=== PATIENT | male | born 1960 | race Caucasian/White ===

== ENCOUNTER 2019-01-21 16:45 | Inpatient (IN) | payer BC ==
[~2019-01-21] VITALS: Ht 182.9 cm; Wt 121.2 kg
[2019-01-21] MEDS ORDERED: NITROGLYCERIN 0.4 MG BOTTLE (25 TABS) SL PRN (17:30)
[2019-01-21 17:36] LABS: BASOPHILS # (AUTO) 0.02 x10^3/uL (0-0.1); BASOPHILS % (AUTO) 0 % (0-1); EOSINOPHILS # (AUTO) 0.11 x10^3/uL (0-0.4); EOSINOPHILS % (AUTO) 1 % (1-7); LYMPHOCYTES # (AUTO) 1.69 x10^3/uL (1-3.4); LYMPHOCYTES % (AUTO) 21 % (22-44); MD NO; MEAN CORPUSCULAR HGB CONC 34.1 g/dL (33.2-36.2); MEAN CORPUSCULAR VOLUME 93.8 fL (81-97); MEAN PLATELET VOLUME 7.9 fL (7.4-10.4); MONOCYTES % (AUTO) 10 % (2-9); NEUTROPHILS # (AUTO) 5.59 x10^3/uL (1.8-6.8); NEUTROPHILS % (AUTO) 68 % (42-75); PLATELET COUNT 189 x10^3/uL (130-400); RED BLOOD COUNT 5.01 x10^6/uL (4.38-5.82); RED CELL DISTRIBUTION WIDTH 12.7 % (9.4-14.8)
[2019-01-21 17:47] LABS: ALBUMIN 3.7 g/dL (3.4-5.0); ANION GAP 7 mmol/L (5-15); CALCIUM 8.6 mg/dL (8.5-10.1); CHLORIDE 105 mmol/L (98-107)
[2019-01-21] MEDS ORDERED: NITROGLYCERIN SINGLE TAB 0.4 MG SL ONE (17:47)
[2019-01-21] MEDS ORDERED: ASPIRIN 81 MG TABLET CHEW ONE (17:47)
[2019-01-21 17:50] LABS: INTERNATIONAL NORMALIZED RATIO 0.99 (0.93-1.1); PROTHROMBIN TIME 10.4 Seconds (9.6-11.5)
[2019-01-21] MEDS ORDERED: ASPIRIN 81 MG TABLET CHEW PO ONE (18:00)
[2019-01-21] MEDS ORDERED: HEPARIN 5,000 UNITS/ML, 1ML ONE (18:21)
[2019-01-21] MEDS ORDERED: HEPARIN 25,000 UNITS/500ML PMX 500 ML ONE (18:22)
[2019-01-21] MEDS ORDERED: NITROGLYCERIN OINT 2%, 1GM TP ONE (18:22)
[2019-01-21] MEDS ORDERED: HEPARIN 5,000 UNITS/ML, 1ML IV ONE (18:30)
[2019-01-21] MEDS ORDERED: HEPARIN 5,000 UNITS/ML, 1ML IV PRN (18:30)
[2019-01-21] MEDS ORDERED: HEPARIN 25,000 UNITS/500ML PMX 500 ML IV PRN (18:30)
[2019-01-21] MEDS ORDERED: SODIUM CHLORIDE FLUSH 10ML SYR IVF ONE (18:30)
[2019-01-21] MEDS ORDERED: MIDAZOLAM 1 MG/ML, 5ML ONE (18:45)
[2019-01-21] MEDS ORDERED: FENTANYL PF 100 MCG/2ML ONE (18:45)
[2019-01-21] MEDS ORDERED: HEPARIN 1,000 UNITS/ML, 10ML ONE (18:46)
[2019-01-21] MEDS ORDERED: TICAGRELOR 90 MG TABLET ONE (18:46)
[2019-01-21] MEDS ORDERED: BIVALIRUDIN 250 MG ONE ×3 (18:46→19:25)
[2019-01-21] MEDS ORDERED: LIDOCAINE 2%, 20ML ONE (18:46)
[2019-01-21] MEDS ORDERED: SODIUM CHLORIDE FLUSH 10ML SYR IVF PRN (19:00)
[2019-01-21] MEDS ORDERED: DIPHENHYDRAMINE 50 MG/ML, 1ML ONE (19:02)
--- NOTE | 2019-01-21 19:03 | NUR ---
TO SPINNING FR[employer] 1852. UNDECIDED ON NSTEMI OR STEMI
[2019-01-21] MEDS ORDERED: ONDANSETRON 2MG/ML, 2ML IVPush PRN (19:30)
[2019-01-21] MEDS ORDERED: POLYETHYLENE GLYCOL 17 GM PACKET PO PRN (19:30)
[2019-01-21] MEDS ORDERED: BISACODYL 10 MG SUPP PR PRN (19:30)
[2019-01-21] MEDS ORDERED: BIVALIRUDIN 250 MG in SODIUM CHLORIDE 0.9% 50 ML IV SCH (19:34)
[2019-01-21 20:00] LABS: HEMOGLOBIN A1C 5.7 % (4.2-6.3)
[2019-01-21] MEDS: ATORVASTATIN 40 MG TABLET PO SCH (21:55)
[2019-01-21] MEDS: METOPROLOL TARTRATE 25 MG TABLET PO SCH (21:56)
[2019-01-21] MEDS: TICAGRELOR 90 MG TABLET PO SCH (21:56)
[2019-01-21] MEDS: SODIUM CHLORIDE 0.9% 1,000 ML IV SCH (22:30)
[2019-01-22 04:05] VITALS: BP 115/71
[2019-01-22 04:35] LABS: CHLORIDE 108 mmol/L (98-107)
[2019-01-22 04:42] LABS: ANION GAP 7 mmol/L (5-15); CALCIUM 8.5 mg/dL (8.5-10.1); CHOL/HDL RATIO 3.8; CHOLESTEROL, TOTAL 140 mg/dL (140-239); CREATININE 0.81 mg/dL (0.7-1.3); HDL CHOL % 26 % (26-37); HDL CHOLESTEROL (DIRECT) 37 mg/dL (40-60); LDL CHOLESTEROL,CALCULATED 58 mg/dL (54-169); LDL/HDL RATIO 1.6 (0.5-3.0); TRIGLYCERIDES 227 mg/dL (50-200); VLDL CHOLESTEROL 45 mg/dL (0-25)
[2019-01-22] MEDS ORDERED: ASPI-515 PO (05:03)
[2019-01-22] MEDS: METOPROLOL TARTRATE 25 MG TABLET PO SCH ×3 (05:20→21:03)
[2019-01-22] MEDS: SODIUM CHLORIDE 0.9% 1,000 ML IV SCH (05:21)
[2019-01-22 05:42] LABS: BASOPHILS # (AUTO) 0.03 x10^3/uL (0-0.1); BASOPHILS % (AUTO) 0 % (0-1); EOSINOPHILS # (AUTO) 0.09 x10^3/uL (0-0.4); EOSINOPHILS % (AUTO) 1 % (1-7); LYMPHOCYTES # (AUTO) 1.71 x10^3/uL (1-3.4); LYMPHOCYTES % (AUTO) 21 % (22-44); MD NO; MEAN CORPUSCULAR HEMOGLOBIN 31.5 pg (27.5-34.5); MEAN CORPUSCULAR HGB CONC 33.5 g/dL (33.2-36.2); MEAN CORPUSCULAR VOLUME 94.2 fL (81-97); MEAN PLATELET VOLUME 8.4 fL (7.4-10.4); MONOCYTES # (AUTO) 0.93 x10^3/uL (0.2-0.8); MONOCYTES % (AUTO) 11 % (2-9); NEUTROPHILS # (AUTO) 5.48 x10^3/uL (1.8-6.8); NEUTROPHILS % (AUTO) 67 % (42-75); PLATELET COUNT 161 x10^3/uL (130-400); RED BLOOD COUNT 4.82 x10^6/uL (4.38-5.82); RED CELL DISTRIBUTION WIDTH 12.5 % (9.4-14.8)
[2019-01-22] MEDS: TICAGRELOR 90 MG TABLET PO SCH ×2 (08:13→21:03)
[2019-01-22] MEDS: ASPIRIN 81 MG TABLET EC PO SCH (08:13)
[2019-01-22] MEDS: ACETAMINOPHEN 325 MG TABLET PO PRN ×2 (08:13→21:03)
[2019-01-22] MEDS: SENNA/DOCUSATE TABLET PO SCH (08:14)
[2019-01-22 19:56] VITALS: BP 139/81
[2019-01-22 21:03] VITALS: BP 135/81
[2019-01-22] MEDS: ATORVASTATIN 40 MG TABLET PO SCH (21:03)
[2019-01-23 00:59] VITALS: BP 138/84
[2019-01-23 05:48] VITALS: BP 143/90
[2019-01-23] MEDS: METOPROLOL TARTRATE 25 MG TABLET PO SCH (05:50)
[2019-01-23 07:15] VITALS: BP_SYST 133; BP_SYST 136; BP_DIAS 88
[2019-01-23] MEDS ORDERED: METO25TA35 PO (08:57)
[2019-01-23] MEDS ORDERED: TICA90TA PO (08:57)
[2019-01-23] MEDS: TICAGRELOR 90 MG TABLET PO SCH (09:03)
[2019-01-23] MEDS: ASPIRIN 81 MG TABLET EC PO SCH (09:03)
[2019-01-23] MEDS: SENNA/DOCUSATE TABLET PO SCH (09:03)
== END 2019-01-23 11:39 | disposition home or self-care (01) | DRG 247 ==
LOC: ED 18:12 → EDIP 19:01 → CCU 19:54 → 5SO 01-22 16:12
PROVIDERS: ADMIT Family Medicine; ATTEND Family Medicine
PROC: 027034Z Dilation of Coronary Artery, One Artery with Drug-eluting Intraluminal Device, Percutaneous Approach (ICD-10-PCS; principal; 2019-01-21)
PROC: 4A023N7 Measurement of Cardiac Sampling and Pressure, Left Heart, Percutaneous Approach (ICD-10-PCS; 2019-01-21)
PROC: B2111ZZ Fluoroscopy of Multiple Coronary Arteries using Low Osmolar Contrast (ICD-10-PCS; 2019-01-21)
DX: I21.4 Non-ST elevation (NSTEMI) myocardial infarction (principal); T82.855A Stenosis of coronary artery stent, initial encounter; E78.00 Pure hypercholesterolemia, unspecified; E78.5 Hyperlipidemia, unspecified; G47.33 Obstructive sleep apnea (adult) (pediatric); I10 Essential (primary) hypertension; I25.10 Atherosclerotic heart disease of native coronary artery without angina pectoris; J44.9 Chronic obstructive pulmonary disease, unspecified; K21.9 Gastro-esophageal reflux disease without esophagitis; E66.9 Obesity, unspecified; Y83.1 Surgical operation with implant of artificial internal device as the cause of abnormal reaction of the patient, or of later complication, without mention of misadventure at the time of the procedure; Y92.89 Other specified places as the place of occurrence of the external cause; Z79.82 Long term (current) use of aspirin; I25.2 Old myocardial infarction; Z87.891 Personal history of nicotine dependence; Z68.36 Body mass index [BMI] 36.0-36.9, adult
CPT/HCPCS: 36415; 93454; 99291; J3490; 71045; 80048; 80061; 82040; 83036; 84443; 84484; 85025; 85520; 85610; 85730; 87081; 93005; 93306; 96374; 96375; 99156; 99157; C1760; C1769; C1894; G0378; J0583; J1644; J2250; J2405; J3010; C1725; C1874; C1887; J1200; J7030; Q9967